=== PATIENT | female | born 1960 | race Hispanic/Latino ===

== ENCOUNTER 2016-04-21 14:08 | Outpatient (CLI) | payer BC ==
--- NOTE | 2016-04-21 15:01 | Mammography Report ---
LEFT DIGITAL DIAGNOSTIC MAMMOGRAM : 04/21/16 14:08:00 CLINICAL: Recalled for asymmetries. COMPARISON:03/14/16 screening FINDINGS: ML and spot magnification MLO and CC views were performed. Satisfactory effacement of the previously described asymmetries on the spot views. No suspicious finding on the lateral view. Ultrasound of the left breast one (including all four quadrants and the retroareolar area) was performed and demonstrated normal fibroglandular and fatty structures. No mass, cyst or shadowing. IMPRESSION: Benign parenchymal asymmetries of the left breast. BI-RADS CATEGORY: 2 - - Benign RECOMMENDATION: Routine mammographic screening in one year. ACR BI-RADS MAMMOGRAPHIC CODES: 0 = Needs additional imaging evaluation; 1 = Negative; 2 = Benign; 3 = Probably benign; 4 = Suspicious; 5 = Malignant; 6 = Known biopsy-proven malignancy COMMENT: 1. Dense breast tissue, i.e., adenosis, fibrocystic changes, etc., may obscure an underlying neoplasm. 2. Approximately 10% of cancers are not detected with mammography. 3. A negative mammography report should not delay biopsy if a clinically suspicious mass is present. COMMENT: Patient follow-up letters are generated via our [employer] application.
== END 2016-04-21 14:09 | disposition home or self-care (01) ==
LOC: SPVWC 14:08
DX: N64.89 Other specified disorders of breast (principal)
CPT/HCPCS: 76641; G0206

== ENCOUNTER 2017-03-27 11:37 | Outpatient (CLI) | payer BC ==
--- NOTE | 2017-03-27 15:48 | Mammography Report ---
BILATERAL DIGITAL SCREENING MAMMOGRAM with CAD: 03/27/17 11:37:00 CLINICAL: Routine screening. COMPARISON:03/14/16 FINDINGS: There are scattered areas of fibroglandular density. No mass, architectural distortion or suspicious calcifications. IMPRESSION: No mammographic evidence of malignancy. BI-RADS CATEGORY: 2 -- Benign RECOMMENDATION: Routine mammographic screening in one year. COMMENT: Patient follow-up letters are generated by our [employer] application.
== END 2017-03-27 11:38 | disposition home or self-care (01) ==
LOC: SPVWC 11:37
DX: Z12.31 Encounter for screening mammogram for malignant neoplasm of breast (principal)
CPT/HCPCS: 77067; G0202